=== PATIENT | female | born 1955 | race Two or more races ===

== ENCOUNTER 2021-02-03 18:22 | Emergency (ER) | payer OTHER ==
[~2021-02-03] VITALS: Ht 165.1 cm; Wt 89.4 kg
[2021-02-03] MEDS ORDERED: BISOPROLOL FUMAR5 GM (19:00)
== END 2021-02-03 21:25 | disposition home or self-care (01) ==
LOC: ER 18:22
DX: R00.2 Palpitations (principal)

== ENCOUNTER 2022-05-20 12:36 | Emergency (ER) | payer OTHER ==
[~2022-05-20] VITALS: Ht 165.1 cm; Wt 86.2 kg
[~2022-05-20 12:36] MED LIST: BISOPROLOL FUMAR5 GM
[2022-05-20] MEDS ORDERED: IBU600 MG PO (21:36)
[2022-05-20] MEDS ORDERED: TAMS0.4C PO (21:36)
== END 2022-05-20 22:00 | disposition home or self-care (01) ==
LOC: ER 12:36
DX: N23 Unspecified renal colic (principal); N20.0 Calculus of kidney; Z20.822 Contact with and (suspected) exposure to COVID-19

== ENCOUNTER → 2025-01-08 | Outpatient (CLI) | payer OTHER ==
[~2025-01-08] MED LIST changes: +IBU600 MG PO; +TAMS0.4C PO
== END | disposition home or self-care (01) ==
LOC: MRI 06:48
DX: K76.89 Other specified diseases of liver (principal); D13.4 Benign neoplasm of liver
CPT/HCPCS: 74183